=== PATIENT | male | born 1960 | race Caucasian/White ===

== ENCOUNTER → 2017-10-02 | Emergency (ER) | payer BC ==
[~2017-10-02] MED LIST: BENADRYL 50 MG/ML IV ONE; BENADRYL 50 MG/ML ONE; MORPHINE SULFATE 10 MG/ML IV ONE; MORPHINE SULFATE 10 MG/ML ONE; MORPHINE SULFATE 4 MG INJ IV ONE; MORPHINE SULFATE 4 MG INJ ONE; ROCEPHIN 1 Gm-D5w 50 ml Bag** 1 G/50 ML IVPB IV STA; Sodium Chloride 0.9% 1000 ML 1,000 ML IV STA; Sodium Chloride 0.9% 1000 ML 1,000 ML ONE; Zofran 4 MG/2 ML VIAL IV ONE; Zofran 4 MG/2 ML VIAL ONE
[2017-10-02 22:09] LABS: BASOPHIL % 0.2 % (0.0-0.4); Basophil (Absolute #) 0.04 (0-0.4); Eosinophil % 0.6 % (0.00-5.0); Eosinophil (Absolute #) 0.11 (0-0.5); Granulocyte Absolute (ANC) 13.76 (1.4-6.9); Granulocytes % 75.9 % (36.0-66.0); Hematocrit 43.6 % (42-50); Hemoglobin 14.4 gm/dl (12.5-18.0); Lymphocyte (Absolute #) 2.35 (1.0-4.6); Mean Corpuscular Hemoglobin 30.4 pg (26-32); Mean Platelet Volume 10.5 fl (6-9.5); Monocyte (Absolute #) 1.86 (0.0-1.3); Monocytes % 10.3 % (0.0-12.0); Platelet Count 283 K/mm3 (150-450); Red Blood Count 4.74 M/mm3 (4.1-5.6); White Blood Count 18.1 K/mm3 (4.0-10.5)
[2017-10-02 23:00] LABS: ALBUMIN 4.4 g/dL (3.5-5.0); ANION GAP 17.3 MEQ/L (5-15); BILIRUBIN,TOTAL 0.8 mg/dL (0.2-1.3); Calcium 9.6 mg/dL (8.4-10.2); Creatinine 1 1.49 mg/dL (0.66-1.25); Potassium 4.3 mmol/L (3.5-5.1); Total Protein 7.7 g/dL (6.3-8.2)
--- NOTE | 2017-10-02 23:19 | ERPHSYRPT ---
- History of Present Illness Time Seen by Provider: 10/02/17 23:16 Historian: patient, family Exam Limitations: no limitations Patient Subjective Stated Complaint: right flank pain starting last night. radiates around to abdomen. denies urinary symptoms/fever Triage Nursing Assessment: alert and in distress. right flank pain that radiates into abdome. denies urinary symptoms. no pain to right flank area on palpation Physician History: pt has right flank and RLQ pain today n hx kidney stone , no trauma no vomitng no CP or sobreath Timing/Duration: today Activities at Onset: none Quality: sharpness, stabbing, throbbing Abdominal Pain Onset Location: RLQ, flank Pain Radiation: flank, groin Severity of Pain-Max: moderate Severity of Pain-Current: moderate Associated Symptoms: nausea Previous symptoms: no prior history Allergies/Adverse Reactions: clindamycin Allergy (Intermediate, Verified 10/02/17 21:46) Home Medications: Atorvastatin Calcium [Lipitor] 40 mg PO DAILY 10/02/17 [History] Levothyroxine Sodium 25 Mcg [Synthroid 25 Mcg] 25 mcg PO DAILY 10/02/17 [ History] Loratadine 10 mg [Claritin 10 mg] 10 mg PO DAILY 10/02/17 [History] Pantoprazole Sodium [Protonix] 40 mg PO DAILY 10/02/17 [History] Tiotropium Br/Olodaterol HCl [Stiolto Respimat Inhal [place]] 1 IH DAILY 10/02/17 [History] Immunizations Up to Date: Yes - Review of Systems Constitutional: No Fever, No Chills Eyes: No Symptoms Ears, Nose, & Throat: No Symptoms Respiratory: No Cough, No Dyspnea Cardiac: No Chest Pain, No Edema, No Syncope Abdominal/Gastrointestinal: Abdominal Pain, Nausea, No Vomiting, No Diarrhea Genitourinary Symptoms: Flank Pain, No Dysuria Musculoskeletal: No Back Pain, No Neck Pain Skin: No Rash Neurological: No Dizziness, No Focal Weakness, No Sensory Changes Psychological: No Symptoms Endocrine: No Symptoms All Other Systems: Reviewed and Negative - Past Medical History Pertinent Past Medical History: Yes Cardiac History: High Cholesterol Respiratory History: Pneumonia, Other Endocrine Medical History: Hypothyroidism Other Medical History: empyema to right lung - Past Surgical History Past Surgical History: Yes Respiratory: Chest Surgery, Other Gastrointestinal: Cholecystectomy Other Surgical History: bronch - Social History Smoking Status: Former smoker Exposure to second hand smoke: No Drug Use: none Patient Lives Alone: No - Nursing Vital Signs Nursing Vital Signs: Initial Vital Signs Temperature 9.9 F 10/02/17 21:26 Pulse Rate 87 10/02/17 21:26 Respiratory Rate 20 10/02/17 21:26 Blood Pressure 150/88 10/02/17 21:26 O2 Sat by Pulse Oximetry 97 10/02/17 21:26 Pain Scale Pain Intensity [] 7 Pain Intensity 3 - Physical Exam General Appearance: no apparent distress, alert Eye Exam: PERRL/EOMI, eyes nml inspection Ears, Nose, Throat Exam: normal ENT inspection, pharynx normal, moist mucous membranes Neck Exam: normal inspection, non-tender, supple, full range of motion Respiratory Exam: normal breath sounds, lungs clear, No respiratory distress Cardiovascular Exam: regular rate/rhythm, normal heart sounds Gastrointestinal/Abdomen Exam: soft, No tenderness, No mass Back Exam: normal inspection, normal range of motion, No CVA tenderness, No vertebral tenderness Extremity Exam: normal inspection, normal range of motion, pelvis stable Neurologic Exam: alert, oriented x 3, cooperative, normal mood/affect, nml cerebellar function, sensation nml, No motor deficits Skin Exam: normal color, warm, dry SpO2: 96 Oxygen Delivery: Room Air - Course Nursing assessment & vital signs reviewed: Yes EKG Interpreted by Me: Sinus Rhythm, NORMAL AXIS, Non-specific ST Changes - CT Exams Abdomen/Pelvis CT Interpretation: Tele-radiologist Report, No appendicitis, Other (left renal stone; post caval mass/node ) Ordered Tests: Active Orders 24 hr Category Date Time Status Clean Catch Urine Specimen STAT Care 10/02/17 21:45 Active EKG-ER Only STAT Care 10/02/17 21:45 Active IV Insertion STAT Care 10/02/17 21:45 Active ABDOMEN AND PELVIS W/0 CONTRAS [CT] Stat Exams 10/02/17 21:46 Taken AMYLASE Stat Lab 10/02/17 21:45 Completed CBC W DIFF Stat Lab 10/02/17 21:45 Completed CMP Stat Lab 10/02/17 21:45 Completed LIPASE Stat Lab 10/02/17 21:45 Completed Lactic Acid Stat Lab 10/02/17 22:24 Completed TROPONIN Q3H Lab 10/02/17 21:45 Completed TROPONIN Q3H Lab 10/03/17 01:00 Ordered TROPONIN Q3H Lab 10/03/17 04:00 Ordered TROPONIN Q3H Lab 10/03/17 07:00 Ordered TROPONIN Q3H Lab 10/03/17 10:00 Ordered UA W/RFX UR CULTURE Stat Lab 10/02/17 23:30 Completed Medication Summary Discontinued Medications Generic Name Dose Route Start Last Admin Trade Name Tristenq PRN Reason Stop Dose Admin Diphenhydramine HCl 25 mg 10/02/17 21:45 10/02/17 22:02 Benadryl 50 Mg/Ml IV 10/02/17 21:46 25 mg STAT ONE Administration Diphenhydramine HCl Confirm 10/02/17 21:55 Benadryl 50 Mg/Ml Administered 10/02/17 21:56 Dose 50 mg .ROUTE .STK-MED ONE Diphenhydramine HCl 25 mg 10/02/17 23:16 10/02/17 23:32 Benadryl 50 Mg/Ml IV 10/02/17 23:17 25 mg STAT ONE Administration Diphenhydramine HCl Confirm 10/02/17 23:26 Benadryl 50 Mg/Ml Administered 10/02/17 23:27 Dose 50 mg .ROUTE .STK-MED ONE Sodium Chloride 1,000 mls @ 999 mls/hr 10/02/17 21:45 10/02/17 22:02 Sodium Chloride 0.9% 1000 Ml IV 10/02/17 22:45 999 mls/hr .Q1H1M STA Administration Sodium Chloride Confirm 10/02/17 21:56 Sodium Chloride 0.9% 1000 Ml Administered 10/02/17 21:57 Dose 1,000 mls @ ud .ROUTE .STK-MED ONE Ceftriaxone Sodium/Dextrose 1 g in 50 mls @ 100 mls/hr 10/02/17 23:20 23:33 Rocephin 1 Gm-D5w 50 Ml Bag IV 10/02/17 23:49 100 mls/hr STAT STA Administration Morphine Sulfate 8 mg 10/02/17 21:45 10/02/17 22:02 Morphine Sulfate 10 Mg/Ml IV 10/02/17 21:46 8 mg STAT ONE Administration Morphine Sulfate Confirm 10/02/17 21:56 Morphine Sulfate 10 Mg/Ml Administered 10/02/17 21:57 Dose 10 mg .ROUTE .STK-MED ONE Morphine Sulfate 4 mg 10/02/17 23:16 10/02/17 23:33 Morphine Sulfate 4 Mg Inj IV 10/02/17 23:17 4 mg STAT ONE Administration Morphine Sulfate Confirm 10/02/17 23:26 Morphine Sulfate 4 Mg Inj Administered 10/02/17 23:27 Dose 4 mg .ROUTE .STK-MED ONE Morphine Sulfate 8 mg 10/03/17 01:50 10/03/17 01:59 Morphine Sulfate 10 Mg/Ml IV 10/03/17 01:51 8 mg STAT ONE Administration Morphine Sulfate Confirm 10/03/17 01:57 Morphine Sulfate 10 Mg/Ml Administered 10/03/17 01:58 Dose 10 mg .ROUTE .STK-MED ONE Ondansetron HCl 4 mg 10/02/17 21:45 10/02/17 22:02 Zofran 4 Mg/2 Ml Vial IV 10/02/17 21:46 4 mg STAT ONE Administration Ondansetron HCl Confirm 10/02/17 21:55 Zofran 4 Mg/2 Ml Vial Administered 10/02/17 21:56 Dose 4 mg .ROUTE .STK-MED ONE Lab/Rad Data: Laboratory Result Diagrams 10/02/17 21:45 10/02/17 21:45 Laboratory Results 10/02/17 10/02/17 10/02/17 Range/Units 23:30 22:24 21:45 WBC (4.0-10.5) K/mm3 RBC (4.1-5.6) M/mm3 Hgb (12.5-18.0) gm/dl Hct (42-50) % MCV (78-100) fl MCH (26-32) pg MCHC (32-36) g/dl RDW (11.5-14.0) % Plt Count (150-450) K/mm3 MPV (6-9.5) fl Gran % (36.0-66.0) % Lymphocytes % (24.0-44.0) % Monocytes % (0.0-12.0) % Eosinophils % (0.00-5.0) % Basophils % (0.0-0.4) % Basophils # (0-0.4) Sodium (137-145) mmol/L Potassium (3.5-5.1) mmol/L Chloride (98-107) mmol/L Carbon Dioxide (22-30) mmol/L Anion Gap (5-15) MEQ/L BUN (9-20) mg/dL Creatinine (0.66-1.25) mg/dL Estimated GFR ML/MIN Glucose (74-106) mg/dL Lactic Acid 0.9 (0.4-2.0) Calcium (8.4-10.2) mg/dL Total Bilirubin (0.2-1.3) mg/dL AST (17-59) U/L ALT (0-50) U/L Alkaline Phosphatase (38-126) U/L Troponin I < 0.012 (0.000-0.034) ng/mL Serum Total Protein (6.3-8.2) g/dL Albumin (3.5-5.0) g/dL Amylase (30-110) U/L Lipase (23-300) U/L Ur Collection Type CLEAN CATCH Urine Color YELLOW (YELLOW) Urine Appearance CLEAR (CLEAR) Urine pH 6.0 (5-6) Ur Specific [place] 1.010 (1.005-1.025) Urine Protein NEGATIVE (Negative) Urine Ketones NEGATIVE (NEGATIVE) Urine Blood NEGATIVE (0-5) Sim/ul Urine Nitrite NEGATIVE (NEGATIVE) Urine Bilirubin NEGATIVE (NEGATIVE) Urine Urobilinogen NORMAL (0-1) mg/dL Ur Leukocyte Esterase NEGATIVE (NEGATIVE) Urine Culture Reflexed NO (NO) Urine Glucose NEGATIVE (NEGATIVE) mg/dL Specimen Received 10/02/17 2330 10/02/17 10/02/17 Range/Units 21:45 21:45 WBC 18.1 H (4.0-10.5) K/mm3 RBC 4.74 (4.1-5.6) M/mm3 Hgb 14.4 (12.5-18.0) gm/dl Hct 43.6 (42-50) % MCV 92.0 (78-100) fl MCH 30.4 (26-32) pg MCHC 33.0 (32-36) g/dl RDW 13.0 (11.5-14.0) % Plt Count 283 (150-450) K/mm3 MPV 10.5 H (6-9.5) fl Gran % 75.9 H (36.0-66.0) % Lymphocytes % 13.0 L (24.0-44.0) % Monocytes % 10.3 (0.0-12.0) % Eosinophils % 0.6 (0.00-5.0) % Basophils % 0.2 (0.0-0.4) % Basophils # 0.04 (0-0.4) Sodium 139 (137-145) mmol/L Potassium 4.3 (3.5-5.1) mmol/L Chloride 102 (98-107) mmol/L Carbon Dioxide 24 (22-30) mmol/L Anion Gap 17.3 H (5-15) MEQ/L BUN 18 (9-20) mg/dL Creatinine 1.49 H (0.66-1.25) mg/dL Estimated GFR 51 ML/MIN Glucose 110 H (74-106) mg/dL Lactic Acid (0.4-2.0) Calcium 9.6 (8.4-10.2) mg/dL Total Bilirubin 0.80 (0.2-1.3) mg/dL AST 42 (17-59) U/L ALT 52 H (0-50) U/L Alkaline Phosphatase 89 (38-126) U/L Troponin I (0.000-0.034) ng/mL Serum Total Protein 7.7 (6.3-8.2) g/dL Albumin 4.4 (3.5-5.0) g/dL Amylase 50 (30-110) U/L Lipase 32 (23-300) U/L Ur Collection Type Urine Color (YELLOW) Urine Appearance (CLEAR) Urine pH (5-6) Ur Specific [place] (1.005-1.025) Urine Protein (Negative) Urine Ketones (NEGATIVE) Urine Blood (0-5) Sim/ul Urine Nitrite (NEGATIVE) Urine Bilirubin (NEGATIVE) Urine Urobilinogen (0-1) mg/dL Ur Leukocyte Esterase (NEGATIVE) Urine Culture Reflexed (NO) Urine Glucose (NEGATIVE) mg/dL Specimen Received - Progress Progress: improved, re-examined Progress Note: 10/03/17 01:27 discussed at length with Dr Best and it is felt best to transfer where specialist can biopsy and continue tx faster; this will require more time for dispo but is best for pt; 10/03/17 01:38 pt has insurance concerns for his insurance denied the hospitalist at [facility] before - this is taking time but wish to accomodate the pts wishes and concerns ; 10/03/17 02:21 discussed with Jorge Gabriel at [facility] and they except in transfer for w/u and Tx; Discussed with .: Other (dr aguirre at [facility]) Will see patient in: hospital (full admit) (Dr. Aguirre at [facility]) Counseled pt/family regarding: lab results, diagnosis, need for follow-up, rad results - Departure Time of Disposition: 02:22 Departure Disposition: Transfer Clinical Impression: Retroperitoneal mass, Elevated WBC count, Kidney stone on left side Condition: Good Critical Care Time: No Referrals: DOCTOR,NO FAMILY [Primary Care Provider] -
[2017-10-02 23:33] LABS: Appearance CLEAR (CLEAR); Bilirubin NEGATIVE (NEGATIVE); Blood NEGATIVE Ery/ul (0-5); Glucose NEGATIVE (NEGATIVE); Ketones NEGATIVE (NEGATIVE); Leukocyte Esterase NEGATIVE (NEGATIVE); Nitrite NEGATIVE (NEGATIVE); Protein,Urine Dip NEGATIVE (Negative); Urobilinogen NORMAL mg/dL (0-1)
[2017-10-03 02:22] LABS: Slide Review 1 YES
[2017-10-03 03:55] VITALS: BP 119/83; PULSE 80; O2SAT 97
--- NOTE | 2017-10-03 09:31 | XRAY ---
Indication: Right flank pain. Multiple contiguous axial images obtained through the abdomen and pelvis without contrast using renal stone protocol. Comparison: None. Lung bases demonstrates minimal bibasilar dependent atelectasis. No infiltrate or effusion. Heart is not enlarged. No renal calculus or evidence for obstructive uropathy in the right system. Left kidney demonstrates tiny nonobstructing punctate calculus and 2 cysts, largest measuring 5 cm. Previous cholecystectomy. A few small hepatic cysts, largest in the posterior right lobe measuring 1 cm. There is a 3.0 x 3.5 x 5.3 cm right paracaval enlarged node with stranding at the level the right renal artery slightly translates the IVC and right renal artery. No other pathologic retroperitoneal lymphadenopathy. Noncontrasted stomach and bowel loops appear nonobstructed. Normal appendix. No free fluid/air. Remaining liver, pancreas, spleen, adrenal glands, kidneys, ureters, and bladder appear unremarkable for noncontrast exam. Mild aortoiliac calcifications without AAA. Osseous structures intact with minimal degenerative changes throughout the spine. Impression: 1. Right paracaval lymphadenopathy as detailed possibly inflammatory versus malignancy. 2. Nonobstructing left renal micro-calculus and left renal cysts. 3. Tiny hepatic cysts. Comment: Preliminary interpretation was made by [facility]. No discrepancy. CTDI 23.49
== END | disposition short-term general hospital (02) ==
LOC: ED 19:45
DX: R19.09 Other intra-abdominal and pelvic swelling, mass and lump (principal); D72.829 Elevated white blood cell count, unspecified; N20.0 Calculus of kidney; Z79.899 Other long term (current) drug therapy
CPT/HCPCS: 36000; 36415; 74176; 80053; 81002; 82150; 83605; 83690; 84484; 85025; 93005; 96360; 96365; 96374; 96375; 96376; 99285; J0696; J1200; J2270; J2405

== ENCOUNTER 2019-01-25 10:13 | Day surgery (SDC) | payer BC ==
--- NOTE | 2019-01-25 08:07 | HP ---
DATE OF SURGERY: 01/25/2019 ADMISSION DIAGNOSIS: Follow up for polyps. ANTICIPATED PROCEDURE: Colonoscopy. HISTORY OF PRESENT ILLNESS: A patient requiring colonoscopy follow up for polyps and presents for such. PAST MEDICAL HISTORY: ALLERGIES: CLINDAMYCIN. HAYFEVER. MEDICATIONS: Loratadine, atorvastatin, Protonix, levothyroxine. 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 SOCIAL HISTORY: Two packs per day. ETOH negative. FAMILY HISTORY: Negative. REVIEW OF SYSTEMS: Kidney cancer. PHYSICAL EXAMINATION: VITAL SIGNS: Normal. CHEST: Clear. COR: Regular. ABDOMEN: Satisfactory. IMPRESSION: Patient requiring colonoscopy and presents for colonoscopy.
[2019-01-25] MEDS ORDERED: DEMEROL 50 MG IV ONE (10:14)
[2019-01-25] MEDS ORDERED: VERSED 5 MG/5 ML IV ONE (10:14)
[2019-01-25] MEDS ORDERED: Lactated Ringers 1,000 ML IV ONE (10:19)
[2019-01-25] MEDS ORDERED: Lactated Ringers 1,000 ML IV SCH (10:30)
[2019-01-25] MEDS ORDERED: Sodium Chloride 0.9% 1000 ML 1,000 ML IV SCH (10:30)
[2019-01-25 13:40] VITALS: O2SAT 97
[2019-01-25 14:10] VITALS: BP 127/86; PULSE 67
--- NOTE | 2019-01-25 14:35 | OP ---
SURGERY DATE/TIME: 01/25/2019 1224 PREOPERATIVE DIAGNOSIS: Screening. POSTOPERATIVE DIAGNOSIS: Three polyps in the rectum. PROCEDURES: 1) Colonoscopy complete to cecum. 2) Hot polypectomy of three polyps in the rectum within an inch of each other submitted in one container. Prep score excellent. Withdrawal time 6 minutes. SURGEON: Tyrone Mathews M.D. ANESTHESIA: IV sedation time 15 minutes. COMPLICATIONS: None. CONDITION: Stable. INDICATION: A patient requiring evaluation. DESCRIPTION OF PROCEDURE: Taken to endoscopy. IV sedation provided. Oximeter kept over 90% and comfort level satisfactory. Scope advanced to the cecum. Prep score excellent. Withdrawal time 6 minutes. FINDINGS: The base of the cecum, ileocecal valve, appendiceal orifice, ascending, hepatic, transverse, splenic, descending, sigmoid, rectum. Upper rectum 3 polyps taken and submitted in one container with hot biopsy forceps. They were 6 mm, 6 mm and 4 mm. There was moderate internal hemorrhoids. The patient tolerated the procedure satisfactorily. Findings discussed with the family in the waiting room.
== END 2019-01-25 13:55 | disposition home or self-care (01) ==
LOC: SDC 10:13
PROVIDERS: ATTEND Surgery
DX: Z09 Encounter for follow-up examination after completed treatment for conditions other than malignant neoplasm (principal); Z12.11 Encounter for screening for malignant neoplasm of colon; D12.8 Benign neoplasm of rectum; K64.8 Other hemorrhoids; Z86.010 Personal history of colon polyps; Z85.528 Personal history of other malignant neoplasm of kidney
CPT/HCPCS: 88305; J2175; J2250